=== PATIENT | male | born 1940 | race Caucasian/White ===

== ENCOUNTER 2017-08-23 08:21 | Observation (INO) | payer MEDICARE, MEDICAID ==
--- NOTE | 2017-08-23 08:57 | C.PDOC ---
History Of Present Illness 76-YEAR-OLD MALE, PMHx INCLUDES DEMENTIA, PRESENTS TO THE EMERGENCY DEPARTMENT WITH COMPLAINTS OF PACEMAKER DISCHARGED UNK TIME OVERNIGHT. PS "MY MADE ME COME HERE." ALL OTHER HX LIMITED PT IS POOR HISTORIAN. Time Seen by Provider: 08/23/17 08:40 Chief Complaint (Nursing): Pacemaker Problem History Per: Patient, Family History/Exam Limitations: clinical condition Current Symptoms Are (Timing): Better Past Medical History Reviewed: Historical Data, Nursing Documentation, Vital Signs Vital Signs: Last Vital Signs Temp 97.9 F 08/23/17 08:22 Pulse 74 08/23/17 08:33 Resp 20 08/23/17 08:22 BP 124/56 L 08/23/17 10:45 Pulse Ox 97 08/23/17 10:19 - Medical History PMH: Alzheimer's Disease, Asthma, CHF, HTN Surgical History: CABG (?), Pacemaker (BIV AICD) Family History: States: No Known Family Hx - Social History Hx Tobacco Use: No Hx Alcohol Use: No Hx Substance Use: No - Immunization History Hx Tetanus Toxoid Vaccination: No Hx Influenza Vaccination: Yes Hx Pneumococcal Vaccination: No Review Of Systems Except As Marked, All Systems Reviewed And Found Negative. Constitutional: Negative for: Fever Physical Exam - Physical Exam Appears: Non-toxic, No Acute Distress Skin: Normal Color, Warm, Dry, No Rash Head: Normacephalic Eye(s): bilateral: PERRL Nose: Normal Oral Mucosa: Moist Lips: Normal Appearing Neck: Normal ROM Chest: Symmetrical Cardiovascular: Rhythm Regular, No Murmur Respiratory: Normal Breath Sounds, No Accessory Muscle Use Extremity: Normal ROM, No Deformity, No Swelling ED Course And Treatment - Laboratory Results Result Diagrams: 08/23/17 09:03 08/23/17 09:03 O2 Sat by Pulse Oximetry: 97 (RA) Pulse Ox Interpretation: Normal Progress - Re-Evaluation Re-evaluation Note: 08/23/17 10:19 d/w dr LION C/F PMD WILL ADMIT - Data Reviewed Data Reviewed: Lab, Diagnostic imaging, EKG, Old records Disposition Counseled Patient/Family Regarding: Studies Performed, Diagnosis - Disposition Disposition: HOSPITALIZED Disposition Time: 10:19 Condition: STABLE - POA Present On Arrival: None - Clinical Impression Clinical Impression: CHF exacerbation, AICD discharge - Scribe Statement The provider has reviewed the documentation as recorded by the Scribe (Sky Toribio) All medical record entries made by the Scribe were at my direction and personally dictated by me. I have reviewed the chart and agree that the record accurately reflects my personal performance of the history, physical exam, medical decision making, and the department course for this patient. I have also personally directed, reviewed, and agree with the discharge instructions and disposition. Decision To Admit - Pt Status Changed To: Hospital Disposition Of: Observation - . Bed Request Type: Telemetry Admitting Physician: Emely Lion Patient Diagnosis: CHF exacerbation, AICD discharge
[2017-08-23 09:09] LABS: BASO # 0.1 K/uL (0.0-0.2); EOS # 0.1 K/uL (0.0-0.7); EOS % 1.2 % (0.0-4.0); HEMOGLOBIN 12.9 g/dL (12.0-18.0); LYMPH # 0.8 K/uL (1.0-4.3); LYMPH % 11.7 % (20.0-40.0); MEAN CORPUSCULAR HEMOGLOBIN 32.5 pg (27.0-31.0); MEAN CORPUSCULAR HGB CONC 34.4 g/dL (33.0-37.0); MEAN PLATELET VOLUME 9.8 fL (7.2-11.7); MONO % 14.2 % (0.0-10.0); NEUT # 5.2 K/uL (1.8-7.0); NEUT % 71.9 % (50.0-75.0); RBC 3.98 Mil/uL (4.40-5.90); RED CELL DISTRIBUTION WIDTH 14.4 % (11.5-14.5); WHITE BLOOD COUNT 7.3 K/uL (4.8-10.8)
[2017-08-23 09:11] LABS: MEAN CELL VOLUME 94.4 fL (80.0-94.0)
[2017-08-23 09:24] LABS: BLOOD UREA NITROGEN 23 mg/dL (9-20); CALCIUM 9.8 mg/dl (8.6-10.4); GFR AFRICAN-AMERICAN > 60; GFR NON-AFRICAN AMERICAN > 60
[2017-08-23 09:35] LABS: B-TYPE NATRIURETIC PEPTIDE 9370 pg/mL (0-900)
[2017-08-23 11:00] LABS: INR 3.3
[2017-08-23 11:05] LABS: PROTHROMBIN TIME 39.7 SECONDS (9.7-12.2)
--- NOTE | 2017-08-23 11:45 | CP.PCM.PCO ---
Physician Communication Note - Physician Communication Note Physician Communication Note: Theraputic on Coumadin for afib. no other dvt ppx
--- NOTE | 2017-08-23 12:10 | RAD ---
Chest x-ray single frontal view History: Chest pain. Comparison: 10/12/2014 Findings: Small to moderate left pleural effusion with adjacent left basilar airspace opacity. Venous congestion. Right hilar prominence. Patchy increased markings at the right lung base. Left-sided pacemaker. Status post median sternotomy. Calcification at the aortic knob. Cardiomegaly. Degenerative changes in the spine. Impression: Small to moderate left pleural effusion with adjacent left basilar airspace opacity. Venous congestion. Right hilar prominence. Patchy increased markings at the right lung base. Left-sided pacemaker. Status post median sternotomy. Calcification at the aortic knob. Cardiomegaly.
[2017-08-23] MEDS ORDERED: Fluticasone Nasal 50 mcg/Spray NAS PRN (13:40)
[2017-08-23 14:00] VITALS: RESP 20
[2017-08-23 14:25] LABS: CK-MB 0.99 ng/mL (0.0-3.38)
--- NOTE | 2017-08-23 16:16 | CP.PCM.HP ---
<Samson Roland - Last Filed: 08/23/17 16:48> History of Present Illness - History of Present Illness History of Present Illness: History is limited as patient is a poor historian. Most history obtained from patient's and the medical record. CC: AICD firing HPI: SP is a 76 year old Frisian-speaking male with a PMH significant for HTN, Afib (on coumadin), CHF, HTN, Alzheimer's, pacemeker (BIV AICD, 1998) and CABG (2010) who presents for apparent AICD firing. Patient's believes that his AICD fired 5 days ago (although this is uncertain as she describes it as chest burning/chest pain), and for the last four days he has been sick with a fever, feeling very cold, and cough. She says they came to the ED because they didn't want to wait for their appointment scheduled with their wardrobe supervisor. At present, patient states that he feels fine and offers no complaints. He denies chest pain, palpitations, SOB, abdominal pain, nausea, vomiting, urinary changes. PMD: Dr. Aury Kaplan Cardio: Abdullahi Hairston PMH: Per medical record: Alzheimer's, asthma, CHF, HTN, Atrial Fibrillation PSH: Pacemaker (BIV AICD, 1998), CABG (2010) Medications: Tamsulosin 0.4mg PO daily; Amlodipine (Norvasc) 5mg PO daily; Warfarin 6mg PO daily; Simvastatin 20mg PO HS; Lasix 40mg PO daily; Multivitamin 1 tab PO daily, Enalapril Maleate (Vasotec) 5mg PO daily; Donepezil (Aricept) 5mg PO daily; Carvedilol 12.5 mg PO BID Allergies: Morphine (reaction: unknown) Family history: No known family history of AK/CVA/cancer Social history: denies tobacco use; denies ETOH use; denies recreational drug use; lives with ; not currently working Present on Admission - Present on Admission Any Indicators Present on Admission: No Review of Systems - Review of Systems Systems not reviewed;Unavailable: Dementia Past Patient History - Infectious Disease Hx of Infectious Diseases: None - Past Medical History & Family History Past Medical History?: Yes - Past Social History Smoking Status: Never Smoked - CARDIAC Hx Congestive Heart Failure: Yes Hx Hypertension: Yes Hx Pacemaker: Yes (BIV AICD) - PULMONARY Hx Asthma: Yes - NEUROLOGICAL Hx Alzheimer's Disease: Yes - MUSCULOSKELETAL/RHEUMATOLOGICAL Hx Falls: No - GENITOURINARY/GYNECOLOGICAL Hx Prostate Problems: Yes - PSYCHIATRIC Hx Substance Use: No - SURGICAL HISTORY Hx Coronary Artery Bypass Graft: Yes (?) - ANESTHESIA Hx Anesthesia: Yes Hx Anesthesia Reactions: No Hx Malignant Hyperthermia: No Has any member of the family had a problem w/ anesthesia?: No Meds Allergies/Adverse Reactions: Allergies Allergy/AdvReac Type Severity Reaction Status Date / Time morphine Allergy Verified 08/23/17 08:44 Physical Exam - Constitutional Appears: Well, Non-toxic, No Acute Distress - Head Exam Head Exam: ATRAUMATIC, NORMAL INSPECTION - Eye Exam Eye Exam: EOMI Pupil Exam: PERRL - ENT Exam ENT Exam: Mucous Membranes Moist - Neck Exam Neck exam: Positive for: Normal Inspection. Negative for: Lymphadenopathy, Tenderness - Respiratory Exam Respiratory Exam: Clear to Auscultation Bilateral, NORMAL BREATHING PATTERN. absent: Rales, Rhonchi, Wheezes - Cardiovascular Exam Cardiovascular Exam: REGULAR RHYTHM, +S1, +S2. absent: Bradycardia, Tachycardia , JVD, Systolic Murmur - GI/Abdominal Exam GI & Abdominal Exam: Normal Bowel Sounds, Soft. absent: Distended, Firm, Guarding, Rebound, Tenderness - Rectal Exam Rectal Exam: Deferred - Extremities Exam Extremities exam: Positive for: normal capillary refill, normal inspection, pedal pulses present. Negative for: calf tenderness, pedal edema - Back Exam Back exam: NORMAL INSPECTION. 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 - Skin Skin Exam: Intact, Normal Color, Warm Results - Vital Signs Recent Vital Signs: Last Vital Signs Temp 98 F 08/23/17 11:41 Pulse 66 08/23/17 11:41 Resp 20 08/23/17 11:41 BP 147/58 L 08/23/17 11:41 Pulse Ox 98 08/23/17 11:41 - Labs Result Diagrams: 08/23/17 09:03 08/23/17 09:03 Labs: Laboratory Results - last 24 hr 08/23/17 08/23/17 08/23/17 09:03 09:03 10:29 WBC 7.3 RBC 3.98 L Hgb 12.9 Hct 37.6 MCV 94.4 H D MCH 32.5 H MCHC 34.4 RDW 14.4 Plt Count 159 MPV 9.8 Neut % (Auto) 71.9 Lymph % (Auto) 11.7 L [place] % (Auto) 14.2 H Eos % (Auto) 1.2 Baso % (Auto) 1.0 Neut # (Auto) 5.2 Lymph # (Auto) 0.8 L [place] # (Auto) 1.0 H Eos # (Auto) 0.1 Baso # (Auto) 0.1 PT 39.7 H* INR 3.3 APTT 38 H Sodium 141 Potassium 3.9 Chloride 109 H Carbon Dioxide 23 Anion Gap 14 BUN 23 H Creatinine 1.0 Est GFR ( Amer) > 60 Est GFR (Non-Af Amer) > 60 Random Glucose 95 Calcium 9.8 Total Creatine Kinase CK-MB (Mass) Troponin I 0.0580 NT-Pro-B Natriuret Pep 9370 H TSH 3rd Generation Digoxin Alcohol, Quantitative 08/23/17 08/23/17 10:29 13:55 WBC RBC Hgb Hct MCV MCH MCHC RDW Plt Count MPV Neut % (Auto) Lymph % (Auto) [place] % (Auto) Eos % (Auto) Baso % (Auto) Neut # (Auto) Lymph # (Auto) [place] # (Auto) Eos # (Auto) Baso # (Auto) PT INR APTT Sodium Potassium Chloride Carbon Dioxide Anion Gap BUN Creatinine Est GFR ( Amer) Est GFR (Non-Af Amer) Random Glucose Calcium Total Creatine Kinase 39 L CK-MB (Mass) 0.99 Troponin I 0.0660 NT-Pro-B Natriuret Pep TSH 3rd Generation 1.48 Digoxin 1.0 Alcohol, Quantitative < 10 Assessment & Plan (1) AICD discharge Assessment and Plan: Consult Cardiology, Dr Howard * Dr Howard works with patient's wardrobe supervisor - Dr Colby * Dr Colby's office aware - Tech will come tmr AM to interrogate AICD EKG showed ventricular paced rhythm - similar to EKG from 2015 Monitor on Telemetry MARY ANNE NEGATIVE x2 TSH NORMAL Alcohol Level NEGATIVE Digoxin NORMAL F/U Lipid Panel Status: Acute Priority: High (2) Atrial fibrillation Assessment and Plan: In NSR Rate controlled Digoxin Level NORMAL Cont home med Digoxin 0.125mg PO QD Cont home med coumadin 6mg PO QD Status: Acute Priority: High (3) CHF (congestive heart failure) Assessment and Plan: Secondary to ischemic cardiomyopathy - Per Dr Colby EF is around 30-35% F/U ECHO ProBNP 9370 Cont home med Coreg 12.5mg PO BID Cont home med Norvasc 5mg PO QD Cont home med Lasix 40mg PO QD Status: Acute Priority: High (4) HTN (hypertension) Assessment and Plan: BP well controlled Cont home med Coreg 12.5mg PO BID Cont home med Norvasc 5mg PO QD Status: Chronic Priority: High (5) BPH (benign prostatic hyperplasia) Assessment and Plan: Presumed based on home medications Continue Flomax 0.4mg PO QD Status: Chronic Priority: Medium (6) CAD (coronary artery disease) Assessment and Plan: Hx of CABG Cont home med Crestor 5mg PO HS On warfarin for AFib F/U Lipid Panel Status: Acute Priority: High (7) AD (Alzheimer's disease) Assessment and Plan: Cont home med Donepezil 5mg PO HS Status: Acute (8) Prophylactic measure Assessment and Plan: SCDs Coumain 6mg PO QD GI prophylaxs not indicated Heart healthy diet Status: Acute Priority: Low <Emely Bui V - Last Filed: 08/23/17 21:52> Results - Vital Signs Recent Vital Signs: Last Vital Signs Temp 97.3 F L 08/23/17 15:52 Pulse 73 08/23/17 15:52 Resp 20 08/23/17 15:52 BP 140/70 08/23/17 18:45 Pulse Ox 96 08/23/17 15:52 - Labs Result Diagrams: 08/23/17 09:03 08/23/17 09:03 Labs: Laboratory Results - last 24 hr 08/23/17 08/23/17 08/23/17 09:03 09:03 09:03 WBC 7.3 RBC 3.98 L Hgb 12.9 Hct 37.6 MCV 94.4 H D MCH 32.5 H MCHC 34.4 RDW 14.4 Plt Count 159 MPV 9.8 Neut % (Auto) 71.9 Lymph % (Auto) 11.7 L [place] % (Auto) 14.2 H Eos % (Auto) 1.2 Baso % (Auto) 1.0 Neut # (Auto) 5.2 Lymph # (Auto) 0.8 L [place] # (Auto) 1.0 H Eos # (Auto) 0.1 Baso # (Auto) 0.1 PT INR APTT Sodium 141 Potassium 3.9 Chloride 109 H Carbon Dioxide 23 Anion Gap 14 BUN 23 H Creatinine 1.0 Est GFR ( Amer) > 60 Est GFR (Non-Af Amer) > 60 Random Glucose 95 Hemoglobin A1c 5.7 Calcium 9.8 Total Creatine Kinase CK-MB (Mass) Troponin I 0.0580 NT-Pro-B Natriuret Pep 9370 H TSH 3rd Generation Digoxin Alcohol, Quantitative 08/23/17 08/23/17 08/23/17 10:29 10:29 13:55 WBC RBC Hgb Hct MCV MCH MCHC RDW Plt Count MPV Neut % (Auto) Lymph % (Auto) [place] % (Auto) Eos % (Auto) Baso % (Auto) Neut # (Auto) Lymph # (Auto) [place] # (Auto) Eos # (Auto) Baso # (Auto) PT 39.7 H* INR 3.3 APTT 38 H Sodium Potassium Chloride Carbon Dioxide Anion Gap BUN Creatinine Est GFR ( Amer) Est GFR (Non-Af Amer) Random Glucose Hemoglobin A1c Calcium Total Creatine Kinase 39 L CK-MB (Mass) 0.99 Troponin I 0.0660 NT-Pro-B Natriuret Pep TSH 3rd Generation 1.48 Digoxin 1.0 Alcohol, Quantitative < 10 08/23/17 19:40 WBC RBC Hgb Hct MCV MCH MCHC RDW Plt Count MPV Neut % (Auto) Lymph % (Auto) [place] % (Auto) Eos % (Auto) Baso % (Auto) Neut # (Auto) Lymph # (Auto) [place] # (Auto) Eos # (Auto) Baso # (Auto) PT INR APTT Sodium Potassium Chloride Carbon Dioxide Anion Gap BUN Creatinine Est GFR ( Amer) Est GFR (Non-Af Amer) Random Glucose Hemoglobin A1c Calcium Total Creatine Kinase 43 L CK-MB (Mass) 1.14 Troponin I 0.0610 NT-Pro-B Natriuret Pep TSH 3rd Generation Digoxin Alcohol, Quantitative Attending/Attestation - Attestation I have personally seen and examined this patient.: Yes I have fully participated in the care of the patient.: Yes I have reviewed all pertinent clinical information: Yes Notes (Text): Patient seen, examined, and case discussed with family practice medical doctor. Patient seen at 11:40AM on 08/23/17 on [facility]. Patient has baseline dementia, patient denies acute complaints but he reports his told him he needs to come to the hospital because his AICD fired. Patient denies acute complaints. He is seen eating lunch at bedside. Patient's PMD, wardrobe supervisor, and his were contacted to obtain further history. Patient with known hx of CABG/CAD, CHF, chronic atrial fibrillation therapuetic on coumadin, and rate control. No prior echo available to see EF. Assessment/Plan (1) AICD discharge Assessment and Plan: * Observe on telemetry * Consult Cardiology, Dr Howard * Dr Howard works with patient's wardrobe supervisor - Dr Colby * Dr Colby's office aware - Tech will come tmr AM to interrogate AICD * EKG showed ventricular paced rhythm - similar to EKG from 2015 * MARY ANNE NEGATIVE x2, pending MARY ANNE * Follow-up Mg2+, will replete if low * TSH NORMAL * Alcohol Level NEGATIVE * Digoxin NORMAL * F/U Lipid Panel Status: Acute Priority: High (2) Atrial fibrillation, chronic Assessment and Plan: * In NSR * Rate controlled * Digoxin Level NORMAL * Cont home med Digoxin 0.125mg PO QD * Cont home med coumadin 6mg PO QD * INR therapuetic: 3.3, will continue home dose of Coumadin Status: chronic Priority: High (3) Chronic Systolic CHF (congestive heart failure) Assessment and Plan: * Secondary to ischemic cardiomyopathy - Per Dr Colby EF is around 30-35% * F/U ECHO * ProBNP 9370 improved from 2015 * Cont home med Coreg 12.5mg PO BID * Cont home med Norvasc 5mg PO QD * Cont home med Lasix 40mg PO QD * monitor daily weights * monitor intake and outputs Status: chronic Priority: High (4) HTN (hypertension) Assessment and Plan: * BP well controlled * Cont home med Coreg 12.5mg PO BID * Cont home med Norvasc 5mg PO QD Status: Chronic Priority: High (5) BPH (benign prostatic hyperplasia) Assessment and Plan: * Presumed based on home medications Continue Flomax 0.4mg PO QD Status: Chronic Priority: Medium (6) CAD (coronary artery disease) Assessment and Plan: * Hx of CABG * Cont home med Crestor 5mg PO HS * F/U Lipid Panel Status: Chronic Priority: High (7) AD (Alzheimer's disease) Assessment and Plan: * Cont home med Donepezil 5mg PO HS Status: Chronic (8) Prophylactic measure Assessment and Plan: * SCDs * Coumadin 6mg PO QDaily, therapeutic, no additional chemical anticoagulation needed * GI prophylaxs not indicated * Heart healthy diet, fluid restriction Status: Acute Priority: Low
--- NOTE | 2017-08-23 17:07 | CP.PCM.CON ---
History of Present Illness - History of Present Illness History of Present Illness: Patient reported;y 'per ' had an AICD discharge recently. Known hx of ICM, hx of CABG, Afib and a [facility] AICD 76 y/o man + Ischemic cardiomyopathy s/p CABG 2010, s/p [facility] AICD BiV: EF EF ~40%, mild , low-normal RV function + AFIB on stable outpatient coumadin dose HTN chronic stable Review of Systems - Review of Systems All systems: reviewed and no additional remarkable complaints except - Constitutional Constitutional: absent: Daytime Sleepiness, Weight Gain, Weight Loss, Weakness - Cardiovascular Cardiovascular: absent: Chest Pain, Claudication, Diaphoresis, Dyspnea, Edema, Palpitations, Rapid Heart Rate, Slow Heart Rate, Syncope - Respiratory Respiratory: absent: Cough, Hemoptysis - Gastrointestinal Gastrointestinal: absent: Abdominal Pain, Change in Stool Character, Nausea, Vomiting Past Patient History - Infectious Disease Hx of Infectious Diseases: None - Past Medical History & Family History Past Medical History?: Yes - Past Social History Smoking Status: Never Smoked - CARDIAC Hx Congestive Heart Failure: Yes Hx Hypertension: Yes Hx Pacemaker: Yes (BIV AICD) - PULMONARY Hx Asthma: Yes - NEUROLOGICAL Hx Alzheimer's Disease: Yes - MUSCULOSKELETAL/RHEUMATOLOGICAL Hx Falls: No - GENITOURINARY/GYNECOLOGICAL Hx Prostate Problems: Yes - PSYCHIATRIC Hx Substance Use: No - SURGICAL HISTORY Hx Coronary Artery Bypass Graft: Yes (?) - ANESTHESIA Hx Anesthesia: Yes Hx Anesthesia Reactions: No Hx Malignant Hyperthermia: No Has any member of the family had a problem w/ anesthesia?: No Meds Allergies/Adverse Reactions: Allergies Allergy/AdvReac Type Severity Reaction Status Date / Time morphine Allergy Verified 08/23/17 08:44 - Medications Medications: Current Medications Amlodipine Besylate (Norvasc) 5 mg PO DAILY [facility] Carvedilol (Coreg) 12.5 mg PO BID [facility] Digoxin (Digoxin) 0.125 mg PO DAILY@1800 [facility] Donepezil HCl (Aricept) 5 mg PO HS [facility] Enalapril Maleate (Vasotec) 5 mg PO DAILY [facility] Fluticasone Propionate (Flonase) 1 spr BUNNY BID PRN PRN Reason: Nasal congestion Furosemide (Lasix) 40 mg PO DAILY [facility] Multivitamins (Hexavitamin) 1 tab PO DAILY [facility] Pneumococcal Polyvalent Vaccine (Pneumovax 23 Vaccine) 0.5 ml IM .ONCE ONE Stop: 08/25/17 10:01 Rosuvastatin Calcium (Crestor) 5 mg PO HS [facility] Tamsulosin HCl (Flomax) 0.4 mg PO DAILY [facility] Warfarin Sodium (Coumadin) 6 mg PO 1800 DIOGENES Stop: 08/23/17 18:01 Physical Exam - Constitutional Appears: No Acute Distress - Head Exam Head Exam: ATRAUMATIC, NORMAL INSPECTION, NORMOCEPHALIC - Eye Exam Eye Exam: EOMI, Normal appearance, PERRL - ENT Exam ENT Exam: Mucous Membranes Moist, Normal Oropharynx - Respiratory Exam Respiratory Exam: absent: Chest Wall Tenderness, Rales, Rhonchi, Wheezes - Cardiovascular Exam Cardiovascular Exam: REGULAR RHYTHM, +S1, +S2, Systolic Murmur (Soft SM RUSB, normal A2). absent: Tachycardia, JVD, +S4 - GI/Abdominal Exam GI & Abdominal Exam: Normal Bowel Sounds, Soft. absent: Tenderness - Extremities Exam Extremities exam: Positive for: normal inspection, pedal pulses present. Negative for: calf tenderness, pedal edema, tenderness - Back Exam Back exam: absent: CVA tenderness (L), CVA tenderness (R) - Neurological Exam Neurological exam: Alert, Normal Gait, Oriented x3 - Psychiatric Exam Psychiatric exam: Normal Affect, Normal Mood - Skin Skin Exam: Normal Color, Warm Results - Vital Signs Recent Vital Signs: Last Vital Signs Temp 97.3 F L 08/23/17 15:52 Pulse 73 08/23/17 15:52 Resp 20 08/23/17 15:52 BP 149/65 08/23/17 15:52 Pulse Ox 96 08/23/17 15:52 - Labs Result Diagrams: 08/24/17 07:09 08/24/17 07:09 Labs: Laboratory Results - last 24 hr 08/23/17 08/23/17 08/23/17 09:03 09:03 10:29 WBC 7.3 RBC 3.98 L Hgb 12.9 Hct 37.6 MCV 94.4 H D MCH 32.5 H MCHC 34.4 RDW 14.4 Plt Count 159 MPV 9.8 Neut % (Auto) 71.9 Lymph % (Auto) 11.7 L [place] % (Auto) 14.2 H Eos % (Auto) 1.2 Baso % (Auto) 1.0 Neut # (Auto) 5.2 Lymph # (Auto) 0.8 L [place] # (Auto) 1.0 H Eos # (Auto) 0.1 Baso # (Auto) 0.1 PT 39.7 H* INR 3.3 APTT 38 H Sodium 141 Potassium 3.9 Chloride 109 H Carbon Dioxide 23 Anion Gap 14 BUN 23 H Creatinine 1.0 Est GFR ( Amer) > 60 Est GFR (Non-Af Amer) > 60 Random Glucose 95 Calcium 9.8 Total Creatine Kinase CK-MB (Mass) Troponin I 0.0580 NT-Pro-B Natriuret Pep 9370 H TSH 3rd Generation Digoxin Alcohol, Quantitative 08/23/17 08/23/17 10:29 13:55 WBC RBC Hgb Hct MCV MCH MCHC RDW Plt Count MPV Neut % (Auto) Lymph % (Auto) Ogle % (Auto) Eos % (Auto) Baso % (Auto) Neut # (Auto) Lymph # (Auto) Ogle # (Auto) Eos # (Auto) Baso # (Auto) PT INR APTT Sodium Potassium Chloride Carbon Dioxide Anion Gap BUN Creatinine Est GFR ( Amer) Est GFR (Non-Af Amer) Random Glucose Calcium Total Creatine Kinase 39 L CK-MB (Mass) 0.99 Troponin I 0.0660 NT-Pro-B Natriuret Pep TSH 3rd Generation 1.48 Digoxin 1.0 Alcohol, Quantitative < 10 - EKG Data EKG Interpreted by: Myself (AFIB, BIV paced, occasional PVCs) Assessment & Plan - Assessment and Plan (Free Text) Assessment: 1. Ischemic cardiomyopathy: EF 35-40% (ECHO 08/23/16 DIRECTLY VIEWED BY ME) 2. CAD s/p CABG 2010 3. Hx of AICD- BIV 4. AFIB permanent 5. HTN 6. LIPIDS 7. Mild , mild-mod AI impression: > Per patient felt AICD shocks --> PPM/AICD interrogated: normal function KEVIN 1.8 years, no shocks --> 96% BIV paced --> Labs WNL, Mg WNL, Dig level appropriate --> NO VOLUME OVERLOAD OR ANGINA, UNEVENTFUL TELEMETRY Amlodipine Besylate (Norvasc) 5 mg PO DAILY [facility] Carvedilol (Coreg) 12.5 mg PO BID [facility] Digoxin (Digoxin) 0.125 mg PO DAILY@1800 D[facility]GENES Donepezil HCl (Aricept) 5 mg PO HS [facility] Enalapril Maleate (Vasotec) 5 mg PO DAILY [facility] Fluticasone Propionate (Flonase) 1 spr BUNNY BID PRN PRN Reason: Nasal congestion Furosemide (Lasix) 40 mg PO DAILY [facility] Multivitamins (Hexavitamin) 1 tab PO DAILY [facility] Pneumococcal Polyvalent Vaccine (Pneumovax 23 Vaccine) 0.5 ml IM .ONCE ONE Stop: 08/25/17 10:01 Rosuvastatin Calcium (Crestor) 5 mg PO HS [facility] Tamsulosin HCl (Flomax) 0.4 mg PO DAILY [facility] Warfarin Sodium (Coumadin) 6 mg PO 1800 DIOGENES Stop: 08/23/17 18:01 MEDS REVIEWED: CONTINUE SAME. f/u OUTPATIENT aGREE WITH ADDING asa 81 DAILY
[2017-08-23] MEDS ORDERED: Digoxin 125 mcg (0.125 mg) Tab PO SCH (18:00)
[2017-08-23 18:41] VITALS: PULSE 78
[2017-08-23 20:08] LABS: CK-MB 1.14 ng/mL (0.0-3.38); TROPONIN I 0.061 ng/mL (0.00-0.120)
[2017-08-23 22:09] LABS: BARBITURATES, UR NEGATIVE (NEGATIVE); BENZODIAZEPINES, UR NEGATIVE (NEGATIVE); OPIATES, UR NEGATIVE (NEGATIVE); PHENCYCLIDINE, UR NEGATIVE (NEGATIVE)
--- NOTE | 2017-08-23 23:43 | CARD ---
APPROVED REPORT EXAM: Two-dimensional and M-mode echocardiogram with Doppler and color Doppler. Other Information Quality : GoodRhythm : INDICATION Atrial Fibrillation Congestive Heart Failure Surgery/Intervention Pacemaker: RISK FACTORS Hypertension 2D DIMENSIONS IVSd1.6 (0.7-1.1cm)LVDd5.1 (3.9-5.9cm) LVOT Diameter2.2 (1.8-2.4cm)PWd1.6 (0.7-1.1cm) LVDs4.3 (2.5-4.0cm)FS (%) 16.0 % LVEF (%)33.5 (>50%) M-Mode DIMENSIONS RVDd1.95 (2.1-3.2cm)Left Atrium (MM)4.97 (2.5-4.0cm) IVSd1.41 (0.7-1.1cm)Aortic Root3.69 (2.2-3.7cm) LVDd6.21 (4.0-5.6cm)Aortic Cusp Exc.0.92 (1.5-2.0cm) PWd1.48 (0.7-1.1cm) Aortic Valve AoV Peak Rngrwckj620.9cm/sAoV VTI43.2cmAO Peak GR.22mmHg LVOT Peak Jeqeecmn23.8cm/sLVOT VTI15.56cmAO Mean GR.13mmHg VARGHESE (VMAX)1.64is3MBS (VTI)1.33yi1SC P 1/2 Kzch465ph Mitral Valve MV E Mkhrvsvi065.5cm/sMV A Srrhqzmv00.1cm/sE/A ratio3.8 TDI E/Lateral E'0.0E/Medial E'0.0 Tricuspid Valve TR Peak Zylcuupv309ty/sTR Peak Gr.54rpAmPMBO07ztJt LEFT VENTRICLE The Left Ventricle is mildly dilated. There is mild concentric left ventricular hypertrophy. Left ventricle systolic function is moderately impaired. The Ejection Fraction is 35-40%. There is akinesis in the apex wall. Apical motion consistent with pacemaker activation. The left atrial pressure is mildly elevated. There is no ventricular septal defect visualized. RIGHT VENTRICLE The right ventricle is normal size. The right ventricular systolic function is normal. ATRIA The left atrium is moderately dilated. The right atrium size is normal. AORTIC VALVE The aortic valve is mildly to moderately sclerotic. The aortic valve is tri-cuspid. There is moderate to severe aortic regurgitation. There is mild valvular aortic stenosis. Calculated aortic valve area is 1.5 cm2 MITRAL VALVE Mitral annular calcification is mild to moderate. There is no evidence of mitral valve prolapse. Mitral regurgitation is mild. TRICUSPID VALVE The tricuspid valve is normal in structure. There is mild tricuspid regurgitation. Right ventricular systolic pressure is estimated at 40-50 mmHg. There is moderate pulmonary hypertension. PULMONIC VALVE The pulmonic valve is not well visualized. There is trace pulmonic valvular regurgitation. GREAT VESSELS The aortic root is mildly enlarged. The IVC is normal in size and collapses >50% with inspiration. PERICARDIAL EFFUSION There is no pericardial effusion. <Conclusion> There is mild concentric left ventricular hypertrophy. Left ventricle systolic function is moderately impaired. The Ejection Fraction is 35-40%. There is akinesis in the apex wall. The left atrial pressure is mildly elevated. There is moderate to severe aortic regurgitation. There is mild valvular aortic stenosis. Mitral regurgitation is mild. There is moderate pulmonary hypertension. The aortic root is mildly enlarged.
[2017-08-24 07:23] LABS: BASO # 0.1 K/uL (0.0-0.2); BASO % 1.2 % (0.0-2.0); EOS # 0.1 K/uL (0.0-0.7); HEMOGLOBIN 12.5 g/dL (12.0-18.0); LYMPH # 0.9 K/uL (1.0-4.3); LYMPH % 13.7 % (20.0-40.0); MEAN CELL VOLUME 93.5 fL (80.0-94.0); MEAN CORPUSCULAR HEMOGLOBIN 31.8 pg (27.0-31.0); MEAN PLATELET VOLUME 9.8 fL (7.2-11.7); MONO # 1.1 K/uL (0.0-0.8); MONO % 16.3 % (0.0-10.0); NEUT # 4.7 K/uL (1.8-7.0); NEUT % 67.8 % (50.0-75.0); RBC 3.94 Mil/uL (4.40-5.90); RED CELL DISTRIBUTION WIDTH 14.4 % (11.5-14.5); WHITE BLOOD COUNT 6.9 K/uL (4.8-10.8)
[2017-08-24 07:26] LABS: INR 2.7
[2017-08-24 07:27] LABS: PROTHROMBIN TIME 31.1 SECONDS (9.7-12.2)
[2017-08-24 08:07] LABS: ALBUMIN 3.6 g/dL (3.5-5.0); ALT/SGPT 40 U/L (21-72); AST/SGOT 48 U/L (17-59); BLOOD UREA NITROGEN 30 mg/dL (9-20); CALCIUM 9.5 mg/dl (8.6-10.4); GFR AFRICAN-AMERICAN > 60; GFR NON-AFRICAN AMERICAN > 60; HDL CHOLESTEROL 33 mg/dL (30-70)
[2017-08-24 08:15] LABS: B-TYPE NATRIURETIC PEPTIDE 10300 pg/mL (0-900)
[2017-08-24 08:22] LABS: LDL CHOLESTEROL 48 mg/dL (0-129)
--- NOTE | 2017-08-24 08:31 | RAD ---
HISTORY: CHF COMPARISON: 08/23/2017 TECHNIQUE: Chest PA and lateral FINDINGS: LUNGS: No active pulmonary disease. PLEURA: No significant pleural effusion identified. No pneumothorax apparent. CARDIOVASCULAR: Normal heart size. AICD. CABG. No congestive change. OSSEOUS STRUCTURES: No significant abnormalities. VISUALIZED UPPER ABDOMEN: Normal. OTHER FINDINGS: None. IMPRESSION: No active disease.
[2017-08-24 09:12] LABS: LEGIONELLA AG URINE NEGATIVE (NEGATIVE)
[2017-08-24 09:16] LABS: MYCOPLASMA PNEUMONIAE IGM NEGATIVE (NEGATIVE)
[2017-08-24] MEDS ORDERED: Multiple Vitamins Tab PO SCH (10:00)
--- NOTE | 2017-08-24 12:39 | CP.PCM.DIS ---
<AsuncionSamson R - Last Filed: 08/24/17 12:30> Provider - Provider Date of Admission: 08/23/17 10:19 Attending physician: Emely Bui DO Primary care physician: PMD: Dr. Aury Kaplan Consults: Cardio: Abdullahi Hairston Time Spent in preparation of Discharge (in minutes): 40 Diagnosis - Discharge Diagnosis (1) AICD discharge Status: Resolved Priority: High (2) Atrial fibrillation Status: Chronic Priority: High (3) CHF (congestive heart failure) Status: Chronic Priority: High (4) HTN (hypertension) Status: Chronic Priority: High (5) BPH (benign prostatic hyperplasia) Status: Chronic Priority: Medium (6) CAD (coronary artery disease) Status: Chronic Priority: High (7) AD (Alzheimer's disease) Status: Chronic Priority: High (8) Prophylactic measure Status: Acute Priority: Low Hospital Course - Lab Results Lab Results: Most Recent Lab Values WBC 6.9 K/uL (4.8-10.8) 08/24/17 07:09 RBC 3.94 Mil/uL (4.40-5.90) L 08/24/17 07:09 Hgb 12.5 g/dL (12.0-18.0) 08/24/17 07:09 Hct 36.9 % (35.0-51.0) 08/24/17 07:09 MCV 93.5 fL (80.0-94.0) 08/24/17 07:09 MCH 31.8 pg (27.0-31.0) H 08/24/17 07:09 MCHC 34.0 g/dL (33.0-37.0) 08/24/17 07:09 RDW 14.4 % (11.5-14.5) 08/24/17 07:09 Plt Count 153 K/uL (130-400) 08/24/17 07:09 MPV 9.8 fL (7.2-11.7) 08/24/17 07:09 Neut % (Auto) 67.8 % (50.0-75.0) 08/24/17 07:09 Lymph % (Auto) 13.7 % (20.0-40.0) L 08/24/17 07:09 [place] % (Auto) 16.3 % (0.0-10.0) H 08/24/17 07:09 Eos % (Auto) 1.0 % (0.0-4.0) 08/24/17 07:09 Baso % (Auto) 1.2 % (0.0-2.0) 08/24/17 07:09 Neut # (Auto) 4.7 K/uL (1.8-7.0) 08/24/17 07:09 Lymph # (Auto) 0.9 K/uL (1.0-4.3) L 08/24/17 07:09 [place] # (Auto) 1.1 K/uL (0.0-0.8) H 08/24/17 07:09 Eos # (Auto) 0.1 K/uL (0.0-0.7) 08/24/17 07:09 Baso # (Auto) 0.1 K/uL (0.0-0.2) 08/24/17 07:09 PT 31.1 SECONDS (9.7-12.2) H* D 08/24/17 07:09 INR 2.7 D 08/24/17 07:09 APTT 36 SECONDS (21-34) H 08/24/17 07:09 Sodium 142 mmol/L (132-148) 08/24/17 07:09 Potassium 4.1 mmol/L (3.6-5.2) 08/24/17 07:09 Chloride 107 mmol/L (98-107) 08/24/17 07:09 Carbon Dioxide 23 mmol/L (22-30) 08/24/17 07:09 Anion Gap 16 (10-20) 08/24/17 07:09 BUN 30 mg/dL (9-20) H 08/24/17 07:09 Creatinine 1.1 mg/dL (0.8-1.5) 08/24/17 07:09 Est GFR ( Amer) > 60 08/24/17 07:09 Est GFR (Non-Af Amer) > 60 08/24/17 07:09 Random Glucose 86 mg/dL (75-110) 08/24/17 07:09 Hemoglobin A1c 5.7 % (4.2-6.5) 08/23/17 09:03 Calcium 9.5 mg/dl (8.6-10.4) 08/24/17 07:09 Phosphorus 3.3 mg/dL (2.5-4.5) 08/24/17 07:09 Magnesium 2.1 mg/dL (1.6-2.3) 08/24/17 07:09 Total Bilirubin 0.8 mg/dL (0.2-1.3) 08/24/17 07:09 AST 48 U/L (17-59) 08/24/17 07:09 ALT 40 U/L (21-72) 08/24/17 07:09 Alkaline Phosphatase 82 U/L (38-126) 08/24/17 07:09 Total Creatine Kinase 43 U/L (55-170) L 08/23/17 19:40 CK-MB (Mass) 1.14 ng/mL (0.0-3.38) 08/23/17 19:40 Troponin I 0.0610 ng/mL (0.00-0.120) 08/23/17 19:40 NT-Pro-B Natriuret Pep 51180 pg/mL (0-900) H 08/24/17 07:09 Total Protein 7.2 g/dL (6.3-8.3) 08/24/17 07:09 Albumin 3.6 g/dL (3.5-5.0) 08/24/17 07:09 Globulin 3.5 gm/dL (2.2-3.9) 08/24/17 07:09 Albumin/Globulin Ratio 1.0 (1.0-2.1) 08/24/17 07:09 Triglycerides 65 mg/dL (0-149) 08/24/17 07:09 Cholesterol 113 mg/dL (0-199) 08/24/17 07:09 LDL Cholesterol Direct 48 mg/dL (0-129) 08/24/17 07:09 HDL Cholesterol 33 mg/dL (30-70) 08/24/17 07:09 TSH 3rd Generation 1.48 mIU/L (0.46-4.68) 08/23/17 13:55 Digoxin 1.0 ng/mL (0.8-2.0) 08/23/17 10:29 Urine Opiates Screen Negative (NEGATIVE) 08/23/17 21:47 Urine Methadone Screen Negative (NEGATIVE) 08/23/17 21:47 Ur Barbiturates Screen Negative (NEGATIVE) 08/23/17 21:47 Ur Phencyclidine Scrn Negative (NEGATIVE) 08/23/17 21:47 Ur Amphetamines Screen Negative (NEGATIVE) 08/23/17 21:47 U Benzodiazepines Scrn Negative (NEGATIVE) 08/23/17 21:47 U Oth Cocaine Metabols Negative (NEGATIVE) 08/23/17 21:47 U Cannabinoids Screen Negative (NEGATIVE) 08/23/17 21:47 Alcohol, Quantitative < 10 mg/dl (0-10) 08/23/17 13:55 Ur L.pneumophila Ag Negative (NEGATIVE) 08/24/17 07:09 Mycoplasma pneumon IgM Negative (NEGATIVE) 08/24/17 07:09 Grp A Beta Strep Ag Negative (NEGATIVE) 08/23/17 11:00 - Hospital Course Hospital Course: History is limited as patient is a poor historian. Most history obtained from patient's and the medical record. CC: AICD firing HPI: SP is a 76 year old Ethiopian-speaking male with a PMH significant for HTN, Afib (on coumadin), CHF, HTN, Alzheimer's, pacemeker (BIV AICD, 1998) and CABG (2010) who presents for apparent AICD firing. Patient's believes that his AICD fired 5 days ago (although this is uncertain as she describes it as chest burning/chest pain), and for the last four days he has been sick with a fever, feeling very cold, and cough. She says they came to the ED because they didn't want to wait for their appointment scheduled with their parachute folder. At present, patient states that he feels fine and offers no complaints. He denies chest pain, palpitations, SOB, abdominal pain, nausea, vomiting, urinary changes. PMD: Dr. Aury Kaplan Cardio: Abdullahi Hairston PMH: Per medical record: Alzheimer's, asthma, CHF, HTN, Atrial Fibrillation PSH: Pacemaker (BIV AICD, 1998), CABG (2010) Medications: Tamsulosin 0.4mg PO daily; Amlodipine (Norvasc) 5mg PO daily; Warfarin 6mg PO daily; Simvastatin 20mg PO HS; Lasix 40mg PO daily; Multivitamin 1 tab PO daily, Enalapril Maleate (Vasotec) 5mg PO daily; Donepezil (Aricept) 5mg PO daily; Carvedilol 12.5 mg PO BID Allergies: Morphine (reaction: unknown) Family history: No known family history of DE/CVA/cancer Social history: denies tobacco use; denies ETOH use; denies recreational drug use; lives with ; not currently working HOSPITAL COURSE: This is a 76 year old male who was evaluated for possible AICD discharge, accompanied by subjective fever, chills and cough. The AICD was interrogated; patient's parachute folder Dr. Hairston spoke to the tech and confirmed that the AICD did not discharge and is okay for continued use (elective replacement interval of 1.[address] Hairston evaluated the patient and recommended continued medical management of patient's chronic medical conditions , agrees with adding ASA 81 mg PO daily, and recommends outpatient follow-up. Patient was monitored on telemetry - uneventful per parachute folder Dr. Hairston. Patient's EKG showed a ventricular paced rhythm. Troponin was negative x 3, TSH normal, alcohol level negative, dixogin level normal, lipid panel normal. Chest x-ray showed no active disease. Echocardiogram showed: "Mild concentric LVH. Ejection Fraction 35-40%. Akinesis in apex wall. Left atrial pressure mildly elevated. Moderate to Severe aortic regurgitation. Mild valvular aortic stenosis. Mitral regurgitation is mild. Moderate pulmonary hypertension. Aortic root is mildly enlarged." Patient's chronic medical conditions were managed by continuing home medications , which includes: Atrial Fibrillation (Digoxin 0.125mg PO daily, Coumadin 6mg PO daily), Congestive Heart Failure (Coreg 12.5mg PO BID, Norvasc 5mg PO daily, Lasix 40mg PO daily, Vasotec 5mg PO daily), Hypertension (Coreg 12.5mg PO BID, Norvasc 5mg PO daily, Vasotec 5mg PO daily), BPH (Flomax 0.4mg PO daily), CAD ( Crestor 5mg PO HS), Alzheimer's disease (Donepezil 5mg PO HS). Patient was instructed to resume his home medications, and started on ASA 81mg PO daily (for which he was given a script). The following is directly from Radiocommunications Technician Dr Hairston progress note: * PPM/AICD interrogated: normal function KEVIN 1.8 years, no shocks * 96% BIV paced * Labs WNL, Mg WNL, Dig level appropriate * NO VOLUME OVERLOAD OR ANGINA, UNEVENTFUL TELEMETRY Discharge Exam - Additional Findings Additional findings: - Constitutional Appears: Well, Non-toxic, No Acute Distress - Head Exam Head Exam: ATRAUMATIC, NORMAL INSPECTION - Eye Exam Eye Exam: EOMI Pupil Exam: PERRL - ENT Exam ENT Exam: Mucous Membranes Moist - Neck Exam Neck exam: Positive for: Normal Inspection. Negative for: Lymphadenopathy, Tenderness - Respiratory Exam Respiratory Exam: Clear to Auscultation Bilateral, NORMAL BREATHING PATTERN. absent: Rales, Rhonchi, Wheezes - Cardiovascular Exam Cardiovascular Exam: REGULAR RHYTHM, +S1, +S2. absent: Bradycardia, Tachycardia , JVD, Systolic Murmur left palpable mass (the pacemaker): no tenderness to palpation, no edema, no erythema noted - GI/Abdominal Exam GI & Abdominal Exam: Normal Bowel Sounds, Soft. absent: Distended, Firm, Guarding, Rebound, Tenderness - Rectal Exam Rectal Exam: Deferred - Extremities Exam Extremities exam: Positive for: normal capillary refill, normal inspection, pedal pulses present. Negative for: calf tenderness, pedal edema - Back Exam Back exam: NORMAL INSPECTION. 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 - Skin Skin Exam: Intact, Normal Color, Warm, no signs of ecchymoses, Patient does have macules and papules over scalp and sides of face which appear "stuck on" Discharge Plan - Discharge Medications Prescriptions: Aspirin [Aspirin Chewable] 81 mg PO DAILY 30 Days #30 ctb - Follow Up Plan Condition: STABLE Disposition: HOME/ ROUTINE Instructions: Heart Healthy Diet, Heart Failure, Adult (DC), Medicines for Heart Failure With Reduced Ejection Fraction, Warfarin, Automatic Cardioverter Defibrillator Implantation (DC), Heart Failure (DC), Hypertension (DC) Additional Instructions: Patient is medically stable for discharge. His AICD was checked and it was confirmed that it is functioning properly. The patient should resume all home medications as listed in the reconciled home medications list (these are the same medications the patient was taking prior to arrival). The patient will be given a script for Aspirin 81mg which he should take once a day until told not to do so. If the patient notices abnormal bleeding he should stop taking the Aspirin immediately. The patient should see his PMD so the they are aware of this admission. If the patient feels as if his AICD has fired, the patient should return to the ER. <Emely Bui V - Last Filed: 08/24/17 23:09> Provider - Provider Date of Admission: 08/23/17 10:19 Attending physician: Emely Bui, Hospital Course - Lab Results Lab Results: Micro Results 08/23/17 11:00 Throat Group A Strep Throat Culture - Final NORMAL SAPROPHYTIC PORTILLO. CULTURE NEGATIVE FOR BETA STREP GROUP A. Most Recent Lab Values WBC 6.9 K/uL (4.8-10.8) 08/24/17 07:09 RBC 3.94 Mil/uL (4.40-5.90) L 08/24/17 07:09 Hgb 12.5 g/dL (12.0-18.0) 08/24/17 07:09 Hct 36.9 % (35.0-51.0) 08/24/17 07:09 MCV 93.5 fL (80.0-94.0) 08/24/17 07:09 MCH 31.8 pg (27.0-31.0) H 08/24/17 07:09 MCHC 34.0 g/dL (33.0-37.0) 08/24/17 07:09 RDW 14.4 % (11.5-14.5) 08/24/17 07:09 Plt Count 153 K/uL (130-400) 08/24/17 07:09 MPV 9.8 fL (7.2-11.7) 08/24/17 07:09 Neut % (Auto) 67.8 % (50.0-75.0) 08/24/17 07:09 Lymph % (Auto) 13.7 % (20.0-40.0) L 08/24/17 07:09 [place] % (Auto) 16.3 % (0.0-10.0) H 08/24/17 07:09 Eos % (Auto) 1.0 % (0.0-4.0) 08/24/17 07:09 Baso % (Auto) 1.2 % (0.0-2.0) 08/24/17 07:09 Neut # (Auto) 4.7 K/uL (1.8-7.0) 08/24/17 07:09 Lymph # (Auto) 0.9 K/uL (1.0-4.3) L 08/24/17 07:09 [place] # (Auto) 1.1 K/uL (0.0-0.8) H 08/24/17 07:09 Eos # (Auto) 0.1 K/uL (0.0-0.7) 08/24/17 07:09 Baso # (Auto) 0.1 K/uL (0.0-0.2) 08/24/17 07:09 PT 31.1 SECONDS (9.7-12.2) H* D 08/24/17 07:09 INR 2.7 D 08/24/17 07:09 APTT 36 SECONDS (21-34) H 08/24/17 07:09 Sodium 142 mmol/L (132-148) 08/24/17 07:09 Potassium 4.1 mmol/L (3.6-5.2) 08/24/17 07:09 Chloride 107 mmol/L (98-107) 08/24/17 07:09 Carbon Dioxide 23 mmol/L (22-30) 08/24/17 07:09 Anion Gap 16 (10-20) 08/24/17 07:09 BUN 30 mg/dL (9-20) H 08/24/17 07:09 Creatinine 1.1 mg/dL (0.8-1.5) 08/24/17 07:09 Est GFR ( Amer) > 60 08/24/17 07:09 Est GFR (Non-Af Amer) > 60 08/24/17 07:09 Random Glucose 86 mg/dL (75-110) 08/24/17 07:09 Hemoglobin A1c 5.7 % (4.2-6.5) 08/23/17 09:03 Calcium 9.5 mg/dl (8.6-10.4) 08/24/17 07:09 Phosphorus 3.3 mg/dL (2.5-4.5) 08/24/17 07:09 Magnesium 2.1 mg/dL (1.6-2.3) 08/24/17 07:09 Total Bilirubin 0.8 mg/dL (0.2-1.3) 08/24/17 07:09 AST 48 U/L (17-59) 08/24/17 07:09 ALT 40 U/L (21-72) 08/24/17 07:09 Alkaline Phosphatase 82 U/L (38-126) 08/24/17 07:09 Total Creatine Kinase 43 U/L (55-170) L 08/23/17 19:40 CK-MB (Mass) 1.14 ng/mL (0.0-3.38) 08/23/17 19:40 Troponin I 0.0610 ng/mL (0.00-0.120) 08/23/17 19:40 NT-Pro-B Natriuret Pep 72341 pg/mL (0-900) H 08/24/17 07:09 Total Protein 7.2 g/dL (6.3-8.3) 08/24/17 07:09 Albumin 3.6 g/dL (3.5-5.0) 08/24/17 07:09 Globulin 3.5 gm/dL (2.2-3.9) 08/24/17 07:09 Albumin/Globulin Ratio 1.0 (1.0-2.1) 08/24/17 07:09 Triglycerides 65 mg/dL (0-149) 08/24/17 07:09 Cholesterol 113 mg/dL (0-199) 08/24/17 07:09 LDL Cholesterol Direct 48 mg/dL (0-129) 08/24/17 07:09 HDL Cholesterol 33 mg/dL (30-70) 08/24/17 07:09 TSH 3rd Generation 1.48 mIU/L (0.46-4.68) 08/23/17 13:55 Digoxin 1.0 ng/mL (0.8-2.0) 08/23/17 10:29 Urine Opiates Screen Negative (NEGATIVE) 08/23/17 21:47 Urine Methadone Screen Negative (NEGATIVE) 08/23/17 21:47 Ur Barbiturates Screen Negative (NEGATIVE) 08/23/17 21:47 Ur Phencyclidine Scrn Negative (NEGATIVE) 08/23/17 21:47 Ur Amphetamines Screen Negative (NEGATIVE) 08/23/17 21:47 U Benzodiazepines Scrn Negative (NEGATIVE) 08/23/17 21:47 U Oth Cocaine Metabols Negative (NEGATIVE) 08/23/17 21:47 U Cannabinoids Screen Negative (NEGATIVE) 08/23/17 21:47 Alcohol, Quantitative < 10 mg/dl (0-10) 08/23/17 13:55 Ur L.pneumophila Ag Negative (NEGATIVE) 08/24/17 07:09 Mycoplasma pneumon IgM Negative (NEGATIVE) 08/24/17 07:09 Grp A Beta Strep Ag Negative (NEGATIVE) 08/23/17 11:00 Attending/Attestation - Attestation I have personally seen and examined this patient.: Yes I have fully participated in the care of the patient.: Yes I have reviewed all pertinent clinical information, including history, physical exam and plan: Yes Notes (Text): Patient seen, examined and case discussed with phlebotomist medical lab assistant. patient seen at bedside with 1:1. Patient is pleasant in no acute distress. Eating lunch at bedside. Patient denies chest pain, denies cough, denies pain. Discussed with cardiology at bedside, patient's AICD was interrograted no shocks were delivered. Patient stable from their standpoint for discharge and follow-up in the office. Patient stable for discharge. Patient to resume home medication list with the addition of baby aspirin given CAD/CABG history. Patient to follow-up with his parachute folder and pmd as outpatient. Discharge diagnoses: (1) AICD discharge (resolved) Assessment and Plan: * Observe on telemetry * Consult Cardiology, Dr Howard * Dr Howard works with patient's parachute folder - Dr Colby * Dr Colby's office aware - Tech came and evaluated today; no shocks delivered noted further findings noted in dc summary * EKG showed ventricular paced rhythm - similar to EKG from 2015 * MARY ANNE NEGATIVE x3 * electrolytes stable * TSH NORMAL * Alcohol Level NEGATIVE * Digoxin NORMAL Status: Acute Priority: High (2) Atrial fibrillation, chronic Assessment and Plan: * In NSR * Rate controlled * Digoxin Level NORMAL * Cont home med Digoxin 0.125mg PO QD * Cont home med coumadin 6mg PO QD * INR therapuetic: 2.7, will continue home dose of Coumadin Status: chronic Priority: High (3) Chronic Systolic CHF (congestive heart failure) Assessment and Plan: * Secondary to ischemic cardiomyopathy - Per Dr Colby EF is around 30-35% * F/U ECHO official report available in emr: 35-40%. * ProBNP 9370 improved from 2015 * Cont home med Coreg 12.5mg PO BID * Cont home med Norvasc 5mg PO QD * Cont home med Lasix 40mg PO QD * monitor daily weights * monitor intake and outputs Status: chronic Priority: High (4) HTN (hypertension) Assessment and Plan: * BP well controlled * Cont home med Coreg 12.5mg PO BID * Cont home med Norvasc 5mg PO QD Status: Chronic Priority: High (5) BPH (benign prostatic hyperplasia) Assessment and Plan: * Presumed based on home medications-->Continue Flomax 0.4mg PO QD Status: Chronic Priority: Medium (6) CAD (coronary artery disease) Assessment and Plan: * Hx of CABG * Cont home med Crestor 5mg PO HS * F/U Lipid Panel * Start aspirin 81mg PO daily Status: Chronic Priority: High (7) AD (Alzheimer's disease) Assessment and Plan: * Cont home med Donepezil 5mg PO HS Status: Chronic (8) Prophylactic measure Assessment and Plan: * SCDs * Coumadin 6mg PO QDaily, therapeutic, no additional chemical anticoagulation needed * GI prophylaxs not indicated * Heart healthy diet, fluid restriction Status: Acute Priority: Low
[2017-08-24 15:40] VITALS: BP 151/66; PULSE 73; TEMP 98.2; O2SAT 95
--- NOTE | 2017-08-24 22:54 | PCM.HF ---
Heart Failure Core Measure - Heart Failure Ejection Fraction: Less Than 40 % Left Ventricular Function to be assessed after discharge: Yes JOSS Inhibitor Prescribed: Yes Beta-Susan Prescribed: Carvedilol Angiotensin II Receptor Susan Prescribed: No Contraindication/Reason for not providing: on joss inhibitor AnticoagulationTherapy for Atrial Fibrillation/Atrialflutter: Yes Aldosterone Antagonist Prescribed: No Contraindication/Reason for not providing: not clinically indicated Hydralazine Nitrate Prescribed: No Contraindication/Reason for not providing: not clinically indicated Implantable Cardioverter Defibrillator Therapy: Yes Cardiac Resynchronization Therapy Prescribed: No Contraindication/Reason for not providing: not clincically indicated - Follow up Will be discharged to: Home Follow Up Date (must be within 7 days from discharge): 08/31/17 Follow Up Time: 09:00
[2017-08-25] MEDS ORDERED: Pneumococcal 23-Valent Vaccine IM ONE (10:00)
[2017-08-25] MEDS ORDERED: Influenza Vaccine 60 mcg/0.5 mL SYR (4YR UP) IM ONE (10:00)
--- NOTE | 2017-08-25 12:28 | CARD ---
APPROVED REPORT EKG Measurement Heart [id number] <Conclusion> Ventricular-paced rhythm Abnormal ECG
--- NOTE | 2017-08-25 12:37 | CARD ---
APPROVED REPORT EKG Measurement Heart [id number] <Conclusion> Ventricular-paced rhythm with occasional premature ventricular complexes Abnormal ECG
== END 2017-08-24 16:44 | disposition home or self-care (01) ==
LOC: C.ER 08:21 → C.9E 10:19 → C.6T 10:40
PROVIDERS: ADMIT Hospitalist; ATTEND Hospitalist
DX: I48.2 Chronic atrial fibrillation (principal); I50.22 Chronic systolic (congestive) heart failure; I35.1 Nonrheumatic aortic (valve) insufficiency; N40.0 Benign prostatic hyperplasia without lower urinary tract symptoms; Z23 Encounter for immunization; J45.909 Unspecified asthma, uncomplicated; I27.20 Pulmonary hypertension, unspecified; I25.5 Ischemic cardiomyopathy; I25.10 Atherosclerotic heart disease of native coronary artery without angina pectoris; G30.9 Alzheimer's disease, unspecified; I11.0 Hypertensive heart disease with heart failure; F02.80 Dementia in other diseases classified elsewhere, unspecified severity, without behavioral disturbance, psychotic disturbance, mood disturbance, and anxiety; Z95.0 Presence of cardiac pacemaker
CPT/HCPCS: 36415; 71045; 71046; 80048; 80053; 80061; 80162; 83036; 83735; 83880; 84100; 84443; 84484; 85025; 85610; 85730; 86738; 87070; 87430; 87449; 93306; 96374; 99285; G0378; G0480; J1940